=== PATIENT | male | born 1990 | race Caucasian/White ===

== ENCOUNTER 2024-07-01 00:24 | Emergency (ER) | payer SELFPAY ==
[~2024-07-01] VITALS: Ht 152.4 cm; Wt 65.0 kg
[2024-07-01 00:28] VITALS: TEMP 97.9; O2SAT 98
[2024-07-01] MEDS: LORAZEPAM 1MG TABLET PO ONE ×2 (01:00)
[2024-07-01 01:43] VITALS: BP 126/58; PULSE 80; RESP 18; O2SAT 100
== END 2024-07-01 01:44 | disposition home or self-care (01) ==
LOC: ER 00:24
DX: F22 Delusional disorders (principal); F15.10 Other stimulant abuse, uncomplicated
CPT/HCPCS: 99283

== ENCOUNTER 2024-07-01 02:21 | Emergency (ER) | payer SELFPAY ==
[~2024-07-01] VITALS: Ht 163.8 cm; Wt 52.7 kg
[2024-07-01 02:33] VITALS: BP 153/101; RESP 20; TEMP 98.3; O2SAT 99
[2024-07-01 02:35] VITALS: PULSE 80; O2SAT 98
== END 2024-07-01 03:12 | disposition left against medical advice (07) ==
LOC: ER 02:21
DX: F41.9 Anxiety disorder, unspecified (principal); Z98.890 Other specified postprocedural states; Z90.89 Acquired absence of other organs; Z53.21 Procedure and treatment not carried out due to patient leaving prior to being seen by health care provider

== ENCOUNTER 2024-07-01 04:01 | Emergency (ER) | payer SELFPAY ==
[~2024-07-01] VITALS: Ht 163.8 cm; Wt 53.1 kg
[2024-07-01 04:08] VITALS: BP 145/88; TEMP 98.2; O2SAT 98
[2024-07-01 04:09] VITALS: PULSE 89; O2SAT 98
[2024-07-01 05:30] VITALS: RESP 19
== END 2024-07-01 05:36 | disposition home or self-care (01) ==
LOC: ER 04:01
DX: F41.9 Anxiety disorder, unspecified (principal); F15.10 Other stimulant abuse, uncomplicated
CPT/HCPCS: 99281

== ENCOUNTER 2024-07-01 08:41 | Emergency (ER) | payer SELFPAY ==
[~2024-07-01] VITALS: Ht 172.7 cm; Wt 75.0 kg
[2024-07-01 08:42] VITALS: O2SAT 99
[2024-07-01 09:05] LABS: HEMATOCRIT. 42.3 % (42.0-52.0); HEMOGLOBIN. 14.5 g/dL (14.0-18.0); MEAN CORPUSCULAR HEMOGLOBIN 29.2 pg (28.0-32.0); MEAN CORPUSCULAR HGB CONC 34.1 g/dL (31.0-37.0); MEAN CORPUSCULAR VOLUME 85.5 fL (80.0-94.0); MEAN PLATELET VOLUME 8.5 fl (7.4-10.4); PLATELET 279 x1000/uL (130-400); RED BLOOD CELL COUNT 4.95 mill/uL (4.7-6.1); WHITE BLOOD COUNT 14.8 x1000/uL (4.5-11.0)
[2024-07-01 09:11] LABS: DIFFERENTIAL COMMENT 1
[2024-07-01 09:14] LABS: CHLORIDE 102 mEq/L (98-107); POTASSIUM 3.8 mEq/L (3.5-5.1); SODIUM 136 mEq/L (136-145)
[2024-07-01 09:15] LABS: CARBON DIOXIDE 26 mEq/L (21-32)
[2024-07-01 09:16] LABS: CALCIUM 9.8 mg/dL (8.7-10.4)
[2024-07-01 09:20] LABS: GLUCOSE 88 mg/dL (70-105); UREA NITROGEN BLOOD 10 mg/dL (9-23)
[2024-07-01] MEDS: DIPHENHYDRAMINE 50MG/ML VIAL IM STA (09:21)
[2024-07-01] MEDS: LORAZEPAM 2MG/ML INJ IM STA (09:21)
[2024-07-01] MEDS: HALOPERIDOL LACTATE 5MG/ML VIAL IM STA (09:22)
[2024-07-01 09:25] LABS: ETHANOL BLOOD < 10 mg/dL (<10)
[2024-07-01 14:59] LABS: PLATELET ESTIMATE NORMAL
[2024-07-01 20:18] LABS: CLARITY URINE CLEAR (CLEAR); COLOR URINE YELLOW (YELLOW); GLUCOSE URINE NEGATIVE (NEGATIVE); KETONES URINE 2+ (NEGATIVE); LEUKOCYTE ESTERASE URINE NEGATIVE (NEGATIVE); NITRITE URINE NEGATIVE (NEGATIVE); OCCULT BLOOD URINE NEGATIVE (NEGATIVE); PROTEIN URINE NEGATIVE (NEGATIVE); SPECIFIC GRAVITY URINE 1.015 (1.005-1.030); UROBILINOGEN URINE 0.2 E.U./dL (0.2-1.0)
[2024-07-01 20:29] LABS: *AMPHETAMINES SCREEN URINE PRESUMPTIVE POSITIVE (NEGATIVE); *BARBITURATES SCREEN URINE NEGATIVE (NEGATIVE); *BENZODIAZEPINES SCREEN URINE NEGATIVE (NEGATIVE)
[2024-07-01 20:30] LABS: *COCAINE SCREEN URINE NEGATIVE (NEGATIVE); CANNABINOID URINE SCREEN PRESUMPTIVE POSITIVE (NEGATIVE); ECSTASY MDMA SCREEN URINE CONF.TEST INDICATED (NEGATIVE); METHADONE URINE SCREEN NEGATIVE (NEGATIVE); OPIATES URINE SCREEN NEGATIVE (NEGATIVE); PHENCYCLIDINE URINE SCREEN NEGATIVE (NEGATIVE)
[2024-07-02 10:35] VITALS: BP 113/58; PULSE 77; RESP 18; TEMP 36.78072; O2SAT 100
== END 2024-07-02 10:34 | disposition home or self-care (01) ==
LOC: ER 08:49
DX: F15.10 Other stimulant abuse, uncomplicated (principal)
CPT/HCPCS: 80305; 80048; 81003; 80320; 85025; 36415; 96372; 99291; 87426; J1200; J1630; J2060; Z7610 ×2; G0480